=== PATIENT | female | born 1995 | race African-American/Black ===

== ENCOUNTER 2024-09-17 09:34 | Emergency (ER) | payer OTHER, SELFPAY ==
[2024-09-17 09:35] VITALS: BP 148/93; PULSE 83; RESP 15; TEMP 36.4; O2SAT 100
[2024-09-17 09:36] VITALS: BMI 20.4
--- NOTE | 2024-09-17 09:55 | EX.ED.DYSGE1 ---
HPI History of Present Illness Chief Complaint: Syncope PFSH PFS Home Medications ?Medication ?Instructions ?Recorded ?Last Taken ?Type drospirenone 3 mg-ethinyl 1 tab PO DAILY 09/17/24 Unknown History estradiol 0.02 mg tablet (Vestura (28)) Allergy/AdvReac Type Severity Reaction Status Date / Time No Known Allergies Allergy Verified 09/17/24 09:36 Social History Smoking Status: Unknown if ever smoked EXAM Physical Exam Const Vital Signs: 09/17/24 09:35 09/17/24 09:38 09/17/24 10:11 Temperature 97.6 F L Temperature Source Temporal Pulse Rate 83 Respiratory Rate 15 Respiratory Pattern Normal Blood Pressure 148/93 H Blood Pressure Mean 111 Pulse Ox 100 99 Oxygen Delivery Method Room Air Room Air 09/17/24 11:35 09/17/24 13:00 09/17/24 13:15 Temperature 98.2 F Temperature Source Pulse Rate 75 87 78 Respiratory Rate 18 18 18 Respiratory Pattern Blood Pressure 125/71 H 127/85 H Blood Pressure Mean 89 99 Pulse Ox 99 98 98 Oxygen Delivery Method Room Air Room Air MDM MDM MDM Narrative Medical decision making narrative: HISTORY OF PRESENT ILLNESS: 29-year-old female with no past medical history presents with concern for feeling faint. She notes this occurred earlier and went to be checked out. She states that she was attempting to take a shower when she became lightheaded and nearly passed out. She denies losing consciousness. Denies any trauma or falls. States she lowered her self down but she slowly started to feel better. Denies history of similar. Denies family or personal history of sudden early cardiac . Denies any prodromal headache, chest pain, abdominal pain. She does note she has history of low iron has been having heavy periods and usual. Denies any vomiting or diarrhea. She does note some shortness of breath prior to feeling lightheaded REVIEW OF SYSTEMS: Pertinent positives: Shortness of breath, near-syncope Pertinent negatives: Chest pain PHYSICAL EXAM: Nursing triage notes reviewed, Vital signs reviewed Constitutional: please see mdm HENT: MMM Eyes: Pupils equal round and reactive to light, Extraocular muscles intact Neck: No stridor, no JVD, full neck ROM Lungs: Clear to auscultation, No wheezing or rales. No increased work of breathing, no conversational dyspnea, no accessory muscle use, no nasal flaring. No respiratory distress noted Heart: Regular rate and rhythm, No murmurs, No rubs and No gallops, 2+ distal pulses (radial, femoral, posterior tibial) in all extremities Abdomen: Soft, there is no tenderness, rigidity, rebound or guarding, no obvious peritoneal signs, no palpable pulsatile abdominal masses, no auscultated abdominal bruit : No CVAT Extremities: No edema Neuro: No new focal neurological deficits, cranial nerves II through XII intact, 5/5 strength in all present extremities. Intact sensation to light touch in all present extremities, 2+ reflexes bilateral patella tendons. Skin: No rash or lesions noted MEDICAL DECISION MAKING: Chief Complaint: Near syncope External records reviewed: Reviewed prior cardiovascular testing Factors affecting care: none Social determinants of health: none History obtained from others: none Consults: none MDM Narrative: The patient was initially hemodynamically stable, afebrile and nontoxic-appearing. Exam without focal cardiopulmonary abnormalities. No focal neurologic deficits. I considered the following differential diagnosis: ACS, arrhythmia, anemia, electro disturbance, PE, dissection ALL IMAGES (IF OBTAINED) HAVE BEEN PERSONALLY REVIEWED AND INTERPRETED BY MYSELF. EKG with normal sinus rhythm rate of 79, normal axis, normal intervals, no STEMI, no stigmata VTE, no WPW, Brugada syndrome or ARVD D-dimer elevated will obtain a CTA CT of the chest shows no evidence of PE (incidental finding discussed patient) I have personally reviewed the patient's chest x-ray. Chest x-ray is unremarkable for pulmonary edema, pneumothorax, pneumonia or focal cardiopulmonary abnormality. High-sensitivity troponin is negative, no evidence of myocardial ischemia x2 Urine negative CBC without leukocytosis, severe anemia, no thrombocytopenia. BMP without evidence of significant electrolyte abnormalities, no anion gap, no acute kidney injury. The synthesis of patient history, physical exam, labs image suggest no acute life-limiting etiology. Will encourage outpatient follow-up for outpatient Holter monitor and echocardiogram. Strict return precautions were discussed. The patient and/or family, caregivers express understanding. The patient and/or family, caregivers agrees with the plan. Shared decision making: I will have a discussion with the patient and or visitors regarding risk/benefits of further testing or admission. They will be made aware of of the risk/benefits inherent in this decision they will be given the opportunity to voice understanding. Total critical care time today provided was at least 0 minutes. This excludes separately billable procedures. Critical care time (if documented) is secondary to the patient having high probability of clinically significant/life threatening deterioration in the patient's condition which required my urgent intervention. Impression: 1. Near syncope 2. Elevated D-dimer Dispo: Discharge home This note was generated with [employer] dictation software. It may contain incorrect words, spelling, and punctuation that were not noted in review of the chart prior to signing. Lab Data Labs: Laboratory Results - last 24 hr 09/17/24 09/17/24 09/17/24 10:22 10:45 11:17 WBC 6.1 RBC 4.41 Hgb 13.8 Hct 40.9 MCV 92.7 MCH 31.3 MCHC 33.7 RDW Std Deviation 39.8 RDW Coeff of Jacobo 11.7 Plt Count 189 MPV 11.0 Immature Gran % (Auto) 0.300 Neut % (Auto) 80.4 H Lymph % (Auto) 13.2 L [place] % (Auto) 4.9 Eos % (Auto) 0.7 Baso % (Auto) 0.5 Absolute Neuts (auto) 4.9 Absolute Lymphs (auto) 0.80 L Nucleated RBC % 0 D-Dimer Quant (PE/DVT) Cancelled 0.95 H* Sodium 140 Potassium 3.8 Chloride 105 Carbon Dioxide 21.2 Anion Gap 14 BUN 9 Creatinine 0.89 Estim Creat Clear Calc 84.51 Est GFR (MDRD) Non-Af 90 BUN/Creatinine Ratio 10.6 Glucose 86 Calcium 9.7 Troponin T High Sens 9 Troponin T Hi Sens 2 Hr Urine Test Negative 09/17/24 12:17 WBC RBC Hgb Hct MCV MCH MCHC RDW Std Deviation RDW Coeff of Jacobo Plt Count MPV Immature Gran % (Auto) Neut % (Auto) Lymph % (Auto) [place] % (Auto) Eos % (Auto) Baso % (Auto) Absolute Neuts (auto) Absolute Lymphs (auto) Nucleated RBC % D-Dimer Quant (PE/DVT) Sodium Potassium Chloride Carbon Dioxide Anion Gap BUN Creatinine Estim Creat Clear Calc Est GFR (MDRD) Non-Af BUN/Creatinine Ratio Glucose Calcium Troponin T High Sens Troponin T Hi Sens 2 Hr 10 Urine Test Radiography Diagnostic Testing: Clinical Impression(s) from Imaging Studies Chest X-Ray 09/17/24 10:11 IMPRESSION: Negative Chest. Reading Location: [address] Chest CTA 09/17/24 12:24 IMPRESSION: 1. No visible pulmonary embolism or other acute abnormality identified. 2. 2 mm left lower lobe micronodule, statistically benign in a patient of this age with no known history of malignancy. Note that the Fleischner recommendations for pulmonary nodule follow-up can not be applied below the age of 35. 3. Additional description as above. Reading Location: [facility] Discharge Plan Triage Chief Complaint: Syncope ED Provider: Cooper Veras Dx/Rx/DC Orders Prescriptions: No Action drospirenone-ethinyl estradiol [Vestura (28)] 3-0.02 mg tablet 1 tab PO DAILY Primary Care Provider: Care Physician,No Primary Referrals: Care Physician,No Primary [Primary Care Provider] - Print Language: Turkmen
[2024-09-17 10:11] VITALS: O2SAT 99
--- NOTE | 2024-09-17 10:11 | EKG12_ITS ---
Test Reason : GENERAL Blood Pressure : */* mmHG Vent. Rate : 79 BPM Atrial Rate : 79 BPM P-R Int : 160 ms QRS Dur : 74 ms QT Int : 378 ms P-R-T Axes : 40 67 41 degrees QTcB Int : 433 ms Normal sinus rhythm with sinus arrhythmia Normal ECG Confirmed by ANJALI SCHWARTZ, MASTER ([id number]), film or videotape editor KECIA HENAO ([id number]) on 09/18/2024 8:19:23 AM Referred By: Confirmed By: MASTER ALBA MD
--- NOTE | 2024-09-17 10:11 | RAD_ITS ---
PROCEDURE: CHEST 1 VIEW (PORTABLE) 09/17/2024 REASON FOR EXAM: CHEST PAIN TECHNIQUE: Frontal view of the chest. COMPARISON: None. FINDINGS: The heart size is normal. The lungs are clear. No pleural effusion or pneumothorax is noted. No acute osseous process is seen. RAD/Chest 1 View (Portable) IMPRESSION: Negative Chest. Reading Location: [id number]
[2024-09-17] MEDS: 0.9% Normal Saline (1000mL) 1,000 ML 999 ML IV (10:22)
[2024-09-17 10:31] LABS: Absolute Neutrophil Count 4.9 X10^3/uL (2.0-7.7); Basophil# 0.03 X10^3/uL; Basophil% 0.5 % (0-1); Eosinophil# 0.04 X10^3/uL; Eosinophils% 0.7 % (0-5); Hematocrit 40.9 % (37-47); Hemoglobin 13.8 g/dL (12.0-15.0); Lymphocyte % 13.2 % (19-41); Mean Corp Hgb Conc 33.7 g/dL (32-36); Mean Corpuscular Hgb 31.3 pg (27.0-32.0); Mean Corpuscular Volume 92.7 fL (81-99); Monocyte% 4.9 % (0-10); NRBC Flagged by Analyzer 0 % (0-5); Neutrophil # 4.89 X10^3/uL (2.7-7.7); Neutrophil % 80.4 % (47-70); Platelet Count 189 K/mm3 (150-450); RBC Distribution Width CV 11.7 % (11.6-14.6); RBC Distribution Width SD 39.8 fl (35.1-43.9); Red Blood Count 4.41 M/mm3 (4.2-5.4); White Blood Count 6.1 K/mm3 (4.4-11.0)
[2024-09-17 11:03] LABS: Troponin T High Sensitivity 9 ng/L (<=14)
[2024-09-17 11:13] LABS: Internal QC Validated? YES +Cl - CLEAR BKGD
[2024-09-17 11:14] LABS: Pregnancy, Urine Negative Negative; Record Kit Lot#,Urine Preg 899023
[2024-09-17 11:32] LABS: Anion Gap 14 (5-15); Calcium,Total 9.7 mg/dL (7.6-11.0); Carbon Dioxide 21.2 mmol/L (21.0-32.0); Chloride 105 mmol/L (98-108); Creatinine, Serum 0.89 mg/dL (0.70-1.20); EST Glomerular Filtration Rate 90 (>60); Estimated Creatinine Clearance 84.51 ml/min (50-250); Glucose 86 mg/dL (70-99); Potassium 3.8 mmol/L (3.3-5.1); Sodium Level 140 mmol/L (133-145)
[2024-09-17 11:35] VITALS: BP 125/71; PULSE 75; RESP 18; O2SAT 99
[2024-09-17 11:48] LABS: D-Dimer Quantitative (DVT/PE) 0.95 FEU/ug/m (0.27-0.49)
[2024-09-17 11:48] LABS: BUN 9 mg/dL (4-19); BUN/Creat Ratio 10.6 RATIO (10-20)
--- NOTE | 2024-09-17 12:24 | CT_ITS ---
PROCEDURE: CTA CHEST W/WO CONTRAST (CTCTACHWW), 09/17/2024 REASON FOR EXAM: SYNCOPE, ELEVATED D-DIMER R/O PE TECHNIQUE: CTA chest was performed with IV contrast. Multiplanar reformats and MIP reconstructions were generated. CONTRAST: 95 mL Isovue 370 One or more dose reduction techniques were used (e.g., Automated exposure control, adjustment of the mA and/or kV according to patient size, use of iterative reconstruction technique). CTDIvol: 5.99 mGy; DLP: 150.32 mGy-cm COMPARISON: Radiograph of same date FINDINGS: Slight limitation due to mildly suboptimal contrast bolus, with similar opacification of the pulmonary arteries and adjacent veins. Heart/pericardium: Unremarkable. Aorta: Unremarkable. Pulmonary arteries: Normal in caliber. No visible pulmonary embolism is identified. Lymph nodes: No overt lymphadenopathy. Prominent anterior mediastinal soft tissue, favorable for residual thymus in this demographic. Lungs/pleura: No focal consolidation. 2 mm subpleural micronodule in the left lower lobe (series 2, image 64). Airways: Unremarkable. Chest wall: Unremarkable. Upper abdomen: Grossly unremarkable. Musculoskeletal: Mild thoracic levoscoliosis may be positional. CT/CTA Chest W/WO Contrast IMPRESSION: 1. No visible pulmonary embolism or other acute abnormality identified. 2. 2 mm left lower lobe micronodule, statistically benign in a patient of this age with no known history of malignancy. Note that the Fleischner recommendations for pulmonary nodule follow-up can not be a pplied below the age of 35. 3. Additional description as above. Reading Location: [id number]
[2024-09-17 12:55] LABS: Troponin T High Sens 2 HR 10 ng/L (<=14)
[2024-09-17 13:00] VITALS: PULSE 87; RESP 18; O2SAT 98
[2024-09-17 13:15] VITALS: BP 127/85; PULSE 78; RESP 18; TEMP 36.8; O2SAT 98
== END 2024-09-17 14:27 | disposition home or self-care (01) ==
PROVIDERS: Emergency Provider Emergency Medicine; Visit Provider Emergency Medicine
DX: R55 Syncope and collapse (principal); R79.89 Other specified abnormal findings of blood chemistry
CPT/HCPCS: 36415; 71045; 71275; 80048; 81025; 84484; 85025; 85379; 93005; 96360; 96361; 99284; Q9967; A4216